=== PATIENT | female | born 1975 | race Caucasian/White ===

== ENCOUNTER → 2019-05-26 | Day surgery (SDC) | payer OTHER ==
--- NOTE | 2019-05-27 16:27 | PATH ---
Surgical Pathology Report Patient Name: JACLYN ZIMMER [facility]. Rec. #: [id number] /Age/Gender: 1975 (Age: 44) / F Account: [id number] Location: [facility] Taken: 05/26/2019 Received: 05/26/2019 Reported: 05/27/2019 Physicians: Radha Mays M.D. Specimen(s) Received RIGHT BREAST CORE BIOPSY Clinical History Nonpalpable lesion Mammographic findings: Suspicious Final Diagnosis BREAST, RIGHT, 8:00, ULTRASOUND GUIDED CORE BIOPSY: BENIGN BREAST PARENCHYMA WITH STROMAL FIBROSIS, MICROCYSTS, COLUMNAR CELL CHANGES, AND FOCAL USUAL DUCTAL HYPERPLASIA. Electronically Signed Tania Vigil M.D. Gross Description Received in formalin labeled "right breast 8:00," are 4 [place]-yellow, cylindrical portions of fibroadipose tissue ranging from 0.4-0.7 cm in length and averaging 0.1 cm in diameter. The specimens are submitted in toto in one cassette. Time to formalin fixation: Less than one minute Total formalin fixation time: Approximately 6 hours. /05/26/2019 [facility]/05/26/2019
== END | disposition home or self-care (01) ==
LOC: JRADUS-SUR 12:18
PROVIDERS: ATTEND Family Medicine
PROC: 0HBT3ZX Excision of Right Breast, Percutaneous Approach, Diagnostic (ICD-10-PCS; principal; 2019-05-26)
DX: N60.31 Fibrosclerosis of right breast (principal); N60.11 Diffuse cystic mastopathy of right breast; N60.81 Other benign mammary dysplasias of right breast; N64.89 Other specified disorders of breast; N63.13 Unspecified lump in the right breast, lower outer quadrant
CPT/HCPCS: 19083; 77065-TC; 87899; 88305-TC; A4648